=== PATIENT | male | born 1970 | race Caucasian/White ===

== ENCOUNTER 2022-05-06 17:50 | Observation (INO) | payer BC ==
[2022-05-06 18:17] LABS: #Eosinphils 0.1 10x3/uL (0.0-0.5); #Monocytes 0.4 10x3/uL (0.0-1.1); #Neutrophils 3.2 10x3/uL (1.5-8.4); %Basophils 0.6 % (0.0-2.0); %Eosinophils 2.6 % (0.0-6.0); %Lymphocytes 28.1 % (18.0-47.0); %Monocytes 7.5 % (0.0-10.0); %Neutrophils 60.8 % (40.0-75.0); Hemoglobin 15.3 g/dL (13.5-17.5); Mean Corpuscular HGB CONC 36.5 g/dL (32.0-36.0); Mean Corpuscular Hemoglobin 32.1 pg (27.0-33.0); Mean Corpuscular Volume 87.8 fl (81.2-95.1); Mean Platelet Volume 9.3 fl (7.4-10.4); Platelet Count 292 10x3/uL (150-450); RBC Distribution Width 13.4 % (11.5-14.5); Red Blood Cell (RBC) Count 4.77 10x6/uL (4.32-5.72); White Blood Cell (WBC) Count 5.3 10x3/uL (3.5-10.5)
[2022-05-06 18:32] LABS: ALT (SGPT) 80 U/L (8-55); AST (SGOT) 52 U/L (5-34); Alkaline Phosphatase 115 U/L (40-110); Anion Gap 15 mmol/L (10-20); BUN (Urea Nitrogen) 9 mg/dL (8.4-25.7); Bilirubin, Total 0.4 mg/dL (0.2-1.2); Calc. Creatinine Clearance 0 mL/min (70-130); Calcium 9.8 mg/dL (7.8-10.44); Carbon Dioxide 25 mmol/L (22-29); Chloride 98 mmol/L (98-107); Estimated GFR 92; Globulin 3.5 g/dL (2.4-3.5); Glucose 347 mg/dL (70-105); Lipase 37 U/L (8-78); Magnesium 1.7 mg/dL (1.6-2.6); Potassium 3.9 mmol/L (3.5-5.1); Protein, Total 7.5 g/dL (6.0-8.3); Sodium 134 mmol/L (136-145)
[2022-05-06] MEDS ORDERED: Aspirin Chewable 81 MG TAB ONE (18:32)
[2022-05-06 21:28] LABS: Troponin I 0.037 ng/mL (< 0.028)
[2022-05-06] MEDS ORDERED: HYDROcodone/Acetaminophen 5/325 mg Tablet PO PRN (23:18)
[2022-05-06] MEDS ORDERED: Dextrose 50% Abboject 50 ML SYRINGE SLOW IVP PRN (23:18)
[2022-05-06] MEDS ORDERED: Ondansetron PF 4 MG/2 ML Vial IVP PRN (23:18)
[2022-05-06] MEDS ORDERED: Dextrose 5% in Water 1,000 ML IV PRN (23:18)
[2022-05-06] MEDS ORDERED: Acetaminophen 325 MG TAB PO PRN (23:18)
[2022-05-06] MEDS ORDERED: Senokot S 8.6-50 MG TAB PO PRN (23:18)
[2022-05-06] MEDS ORDERED: Zolpidem Tartrate 5 MG TAB PO PRN (23:18)
[2022-05-06] MEDS ORDERED: Guaifenesin DM 100-10/5 ML UDCUP PO PRN (23:18)
[2022-05-06] MEDS ORDERED: Calcium Carbonate 500 MG ChewTAB PO PRN (23:18)
[2022-05-06] MEDS ORDERED: Nitroglycerin 0.4 MG TAB (25 Tab Bottle) SL PRN (23:21)
[2022-05-07] MEDS ORDERED: Metoprolol Tartrate 25 MG TAB PO SCH ×2 (00:15→09:00)
[2022-05-07] MEDS: HumaLOG 300 UNITS/3 ML VIAL SC PRN ×4 (00:22→17:42)
[2022-05-07 01:24] LABS: CKMB 1.3 ng/mL (0-6.6)
[2022-05-07 02:43] VITALS: BMI 51.7
[2022-05-07 03:57] LABS: #Basophils 0.1 10x3/uL (0.0-0.2); #Eosinphils 0.2 10x3/uL (0.0-0.5); #Monocytes 0.6 10x3/uL (0.0-1.1); #Neutrophils 2.8 10x3/uL (1.5-8.4); %Basophils 1.1 % (0.0-2.0); %Lymphocytes 32.9 % (18.0-47.0); %Monocytes 10.6 % (0.0-10.0); %Neutrophils 50.9 % (40.0-75.0); Hemoglobin 14.1 g/dL (13.5-17.5); Mean Corpuscular HGB CONC 35.8 g/dL (32.0-36.0); Mean Corpuscular Hemoglobin 31.6 pg (27.0-33.0); Mean Corpuscular Volume 88.3 fl (81.2-95.1); Mean Platelet Volume 9.3 fl (7.4-10.4); Platelet Count 271 10x3/uL (150-450); RBC Distribution Width 13.6 % (11.5-14.5); Red Blood Cell (RBC) Count 4.46 10x6/uL (4.32-5.72); White Blood Cell (WBC) Count 5.5 10x3/uL (3.5-10.5)
[2022-05-07 04:15] LABS: ALT (SGPT) 61 U/L (8-55); AST (SGOT) 32 U/L (5-34); Albumin 3.6 g/dL (3.5-5.0); Alkaline Phosphatase 93 U/L (40-110); Anion Gap 11 mmol/L (10-20); BUN (Urea Nitrogen) 10 mg/dL (8.4-25.7); Bilirubin, Total 0.4 mg/dL (0.2-1.2); Calc. Creatinine Clearance 201 mL/min (70-130); Calcium 9.2 mg/dL (7.8-10.44); Carbon Dioxide 28 mmol/L (22-29); Chloride 101 mmol/L (98-107); Cholesterol 223 mg/dl (< 200 Desired); Estimated GFR 97; Glucose 282 mg/dL (70-105); HDL Cholesterol 28 mg/dL (>60 Neg Risk); LDL Cholesterol, Calculated 148 mg/dL; Potassium 4.4 mmol/L (3.5-5.1); Protein, Total 6.6 g/dL (6.0-8.3); Sodium 136 mmol/L (136-145); Triglycerides 236 mg/dL (Less than 150)
[2022-05-07 04:32] LABS: Free T4 (Free Thyroxine) 0.88 ng/dL (0.70-1.48); Thyroid Stimulating Hormone 1.5046 uIU/mL (0.35-4.94)
[2022-05-07 04:33] LABS: CKMB 1.3 ng/mL (0-6.6)
[2022-05-07] MEDS ORDERED: Aspirin 81 mg Enteric Coated Tablet PO SCH (09:00)
[2022-05-07] MEDS ORDERED: Losartan 25 MG TAB PO SCH (09:00)
[2022-05-07] MEDS ORDERED: Enoxaparin Sodium 40 MG/0.4 ML SYRINGE SC SCH (09:00)
[2022-05-07] MEDS: metFORMIN 500 MG TAB PO SCH ×2 (09:05→17:37)
[2022-05-07 12:48] LABS: Hemoglobin A1c 10.2 % (4.0-6.0)
[2022-05-07] MEDS ORDERED: Carvedilol 6.25 MG TAB PO SCH (17:00)
[2022-05-07 17:32] VITALS: BP 132/74; TEMP 97.7
== END 2022-05-07 18:00 | disposition home or self-care (01) ==
LOC: CSHERS 17:50 → CSHTELE 23:56 → INTOOBSV 23:56
PROVIDERS: ADMIT Student in an Organized Health Care Education/Training Program; ATTEND Family Medicine
DX: R07.89 Other chest pain (principal); R77.8 Other specified abnormalities of plasma proteins; I16.0 Hypertensive urgency; E78.5 Hyperlipidemia, unspecified; R79.89 Other specified abnormal findings of blood chemistry; E11.65 Type 2 diabetes mellitus with hyperglycemia; G47.33 Obstructive sleep apnea (adult) (pediatric); U07.1 COVID-19; E66.01 Morbid (severe) obesity due to excess calories; Z68.51 Body mass index [BMI] pediatric, less than 5th percentile for age; Z98.890 Other specified postprocedural states
CPT/HCPCS: 36415; 36416; 71045; 80053; 80061; 82553; 83036; 83690; 83735; 84439; 84443; 84484; 85025; 85379; 93005; 93306; 96372; G0378; J1650; J1815; U0003; U0005

== ENCOUNTER 2025-05-10 20:16 | Emergency (ER) | payer BC ==
[2025-05-10] MEDS ORDERED: Boostrix 0.5 ML (Tdap) VIAL (>/=7 yrs of age) ONE (20:36)
[2025-05-10] MEDS ORDERED: Bacitracin 1 PK ONE (23:18)
== END 2025-05-10 23:30 | disposition home or self-care (01) ==
LOC: CSHERS 20:16
DX: S61.011A Laceration without foreign body of right thumb without damage to nail, initial encounter (principal); S61.210A Laceration without foreign body of right index finger without damage to nail, initial encounter; I10 Essential (primary) hypertension; E11.9 Type 2 diabetes mellitus without complications; W26.0XXA Contact with knife, initial encounter
CPT/HCPCS: 12001; 90715; 99282